=== PATIENT | female | born 1985 | race Caucasian/White ===

== ENCOUNTER → 2021-01-11 11:37 | Outpatient (CLI) | payer OTHER, SELFPAY ==
[2021-01-11 19:28] LABS: Add Manual Diff / Slide Review NO; Basophils Absolute Auto 100 /uL (0-100); Eosinophils Absolute Auto 200 /uL (0-450); Eosinophils Percent Auto 3.1 % (2-4); Hematocrit 39.6 % (36-46); Hemoglobin 13.1 g/dL (12.0-16.0); Lymphocytes Absolute Auto 2700 /uL (1100-4500); Lymphocytes Percent Auto 32.9 % (25-40); Mean Corpuscular HGB Conc 33.1 % (30-36); Mean Corpuscular Hemoglobin 29.7 PG (26-34); Mean Corpuscular Volume 89.7 fL (80-100); Monocytes Absolute Auto 600 /uL (0-900); Monocytes Percent Auto 7.2 % (3-14); Neutrophils Absolute Auto 4500 /uL (1500-7000); Neutrophils Percent Auto 55.8 % (50-75); Platelet Count 454 X10^3/uL (150-400); Red Blood Cell Count 4.41 X10^6/uL (4.0-5.2); Red Cell Distribution Width 13.8 % (11.6-14.8); White Blood Cell Count 8.1 X10^3/uL (4.5-11.0)
[2021-01-11 19:37] LABS: Alanine Aminotransferase 30 IU/L (<35); Albumin 4.2 g/dL (3.5-5.0); Albumin Globulin Ratio 1.4 (1.0-2.8); Alkaline Phosphatase 77 U/L (38-126); Aspartate Aminotransferase 36 IU/L (14-36); BUN Creatinine Ratio 13.4 (6-22); Bilirubin Total 0.4 mg/dL (0.2-1.3); Blood Urea Nitrogen 11 mg/dL (7-17); Carbon Dioxide 23 mmol/L (22-32); Chloride 106 mmol/L (98-107); Cholesterol 205 mg/dL (140-199); Estimated Glomerular Filt Rate > 60.0 mL/min (>60); Globulin 3.1 g/dL (1.7-4.1); Glucose 79 mg/dL (70-100); HDL Cholesterol 56 mg/dL (40-60); HEMOLYSIS < 15 (0-50); LDL Cholesterol Calculated 115 mg/dL (<100); Potassium 4.8 mmol/L (3.4-5.1); Sodium 139 mmol/L (137-145); Total Protein 7.3 g/dL (6.3-8.2); Triglycerides 168 mg/dL (35-150)
[2021-01-11 20:05] LABS: TSH w/ Reflex to FT4 3.11 uIU/mL (0.47-4.68)
== END ==
PROVIDERS: PCP Family Medicine; Visit Provider Family Medicine
DX: E03.9 Hypothyroidism, unspecified (principal); E78.5 Hyperlipidemia, unspecified; I10 Essential (primary) hypertension; N64.4 Mastodynia
CPT/HCPCS: 80053; 80061; 84443; 85025

== ENCOUNTER → 2024-05-18 09:35 | Outpatient (CLI) | payer OTHER, SELFPAY ==
[2024-05-18 19:06] LABS: Add Manual Diff / Slide Review NO; Basophils Absolute Auto 100 /uL (0-100); Basophils Percent Auto 0.9 % (0-2); Eosinophils Absolute Auto 600 /uL (0-450); Eosinophils Percent Auto 7.9 % (2-4); Hematocrit 39.9 % (36-46); Hemoglobin 13.4 g/dL (12.0-16.0); Lymphocytes Absolute Auto 2200 /uL (1100-4500); Lymphocytes Percent Auto 28.7 % (25-40); Mean Corpuscular HGB Conc 33.7 % (30-36); Mean Corpuscular Hemoglobin 30.5 PG (26-34); Mean Corpuscular Volume 90.6 fL (80-100); Monocytes Absolute Auto 600 /uL (0-900); Monocytes Percent Auto 7.1 % (3-14); Neutrophils Absolute Auto 4400 /uL (1500-7000); Neutrophils Percent Auto 55.4 % (50-75); Platelet Count 460 X10^3/uL (150-400); White Blood Cell Count 7.8 X10^3/uL (4.5-11.0)
[2024-05-18 19:10] LABS: HEMOLYSIS < 15 (0-50); Iron 54 ug/dL (37-170)
[2024-05-18 19:14] LABS: Alanine Aminotransferase 21 IU/L (<35); Albumin 4.1 g/dL (3.5-5.0); Albumin Globulin Ratio 1.5 (1.0-2.8); Alkaline Phosphatase 77 U/L (38-126); Aspartate Aminotransferase 24 IU/L (14-36); Bilirubin Total 0.3 mg/dL (0.2-1.3); Blood Urea Nitrogen 10 mg/dL (7-17); Calcium 9.6 mg/dL (8.4-10.2); Carbon Dioxide 20 mmol/L (22-32); Chloride 108 mmol/L (98-107); Cholesterol 160 mg/dL (140-199); Estimated Glomerular Filt Rate > 60 mL/min (>60); Globulin 2.7 g/dL (1.7-4.1); Glucose 98 mg/dL (70-100); HDL Cholesterol 50 mg/dL (40-60); HEMOLYSIS < 15 (0-50); LDL Cholesterol Calculated 86 mg/dL (<100); Potassium 4.7 mmol/L (3.4-5.1); Sodium 136 mmol/L (137-145); Total Protein 6.8 g/dL (6.3-8.2); Triglycerides 121 mg/dL (35-150)
[2024-05-18 19:21] LABS: Percent Iron Saturation 15 % (15-50); Total Iron Binding Capacity 354 ug/dL (265-497); Transferrin 278 mg/dL (206-381)
[2024-05-18 19:27] LABS: Vitamin D 25 Hydroxy (D3) 43.7 ng/mL (30.0-100.0)
[2024-05-18 19:46] LABS: Ferritin 34 ng/mL (6-137)
[2024-05-21 08:11] LABS: ANA Screen, IFA Positive (.)
== END ==
PROVIDERS: PCP Family Medicine; Visit Provider Family Medicine
DX: E78.5 Hyperlipidemia, unspecified (principal); E03.9 Hypothyroidism, unspecified; I10 Essential (primary) hypertension; K76.0 Fatty (change of) liver, not elsewhere classified; E55.9 Vitamin D deficiency, unspecified
CPT/HCPCS: 80053; 80061; 82306; 82728; 83540; 83550; 84443; 85025; 86038

== ENCOUNTER → 2024-11-01 08:34 | Outpatient (CLI) | payer OTHER, SELFPAY ==
--- NOTE | 2024-11-01 08:36 | DI.US.S_ITS ---
PROCEDURE: US ART THORACIC OUT SYNDROME INDICATIONS: Swelling of right upper extremity Pain of left up TECHNIQUE: Color and pulse Doppler interrogation was performed of left and right upper extremity arterial and venous systems, with image documentation. COMPARISON: None. FINDINGS: Right upper extremity: Arteries In the neutral position, the right subclavian artery and axillary artery appear normal. With the arm position adjusted to create symptoms, as well as with biceps curl, there is slightly increased right subclavian artery peak systolic velocity, otherwise without significant evidence of stenosis/impingement. The right axillary artery appears normal. These results do not change with push down or pushup maneuvers. Veins There is massively increased peak systolic velocity of the right subclavian vein reaching 228.2 centimeters/second at 90 degree position of the arm. The right subclavian vein otherwise appears normal with pushup resistance and push down maneuver. There is mild increase in the venous peak systolic velocity with biceps Coral at the right subclavian vein and right axillary vein up to 137.5 centimeters/second. Left upper extremity: Arteries The left subclavian and axillary artery appear patent throughout with no significant stenosis in the neutral position. Veins The left subclavian vein and axillary vein appear widely patent without significant stenosis. 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 - Consider CT venogram of the left upper extremity in a symptomatic position to provide a more definitive characterization and better anatomical localization as well as possible surgical planning. Dictated by: Manuel Sheth M.D. on 11/03/2024 at 19:34 Approved by: Manuel Sheth M.D. on 11/03/2024 at 19:53
== END ==
PROVIDERS: PCP Family Medicine; Referring Provider Family Medicine; Visit Provider Family Medicine
DX: Q79.60 Ehlers-Danlos syndrome, unspecified (principal); M79.89 Other specified soft tissue disorders; M79.622 Pain in left upper arm; M54.12 Radiculopathy, cervical region
CPT/HCPCS: 93930

== ENCOUNTER → 2024-11-27 10:41 | Outpatient (CLI) | payer OTHER, SELFPAY ==
--- NOTE | 2024-11-27 10:42 | DI.CT.S_ITS ---
PROCEDURE: CT ANGIO UE RT INDICATIONS: venogram RUE for Thoracic outlet syndrom TECHNIQUE: After the administration of intravenous contrast, 2.5 mm sections acquired from the aortic arch through the symptomatic arm, with optional delayed image acquisition from the elbows to the fingers. 3-dimensional maximum intensity projection (MIP) coronal and sagital reformats, and/or 3-dimensional volume rendering reformatting was then performed. For radiation dose reduction, the following was used: automated exposure control. COMPARISON: [facility], , US ART THORACIC OUT SYNDROME, 11/01/2024, 8:51. FINDINGS: Image quality: Excellent. Thoracic aorta: Included portion of the thoracic aorta is normal in size and show normal contrast opacification without aortic aneurysm or dissection. Great vessels: Patent without hemodynamically significant stenosis or aneurysm. Upper extremity: Patent without hemodynamically significant stenosis or aneurysm. There is hypertrophy of the right anterior scalene muscle with significant impingement of the distal right subclavian vein with the right arm is in raised position best seen on series 10, image 81 and series 11 image 61. No other area of abnormal narrowing is seen in included portion of right upper extremity veins. Extravascular tissues: There is no supraclavicular or axillary lymphadenopathy. Visualized mediastinal and hilar region shows no enlarged lymph nodes. Visualized right lung field is clear. No chest wall soft tissue mass or drainable fluid collection. The visualized osseous structures shows no aggressive appearing bony lesions. IMPRESSION: 1. Hypertrophy of right anterior scalene muscle and show significant mass effect on the adjacent distal right subclavian vein when the arm is in raised position consistent with right venous thoracic outlet syndrome. 2. No hemodynamically significant stenosis or aneurysm is seen in right upper extremity arteries with arm in race or neutral positions. 3. No right chest wall/axillary soft tissue mass or lymphadenopathy. Visualized right lung field is clear. Dictated by: Marshall Martinez M.D. on 11/28/2024 at 0:56 Approved by: Marshall Martinez M.D. on 11/28/2024 at 2:37
== END ==
LOC: CT 10:41
PROVIDERS: PCP Family Medicine; Referring Provider Family Medicine; Visit Provider Family Medicine
DX: M62.89 Other specified disorders of muscle (principal); I87.8 Other specified disorders of veins; M79.89 Other specified soft tissue disorders
CPT/HCPCS: 73206; Q9967

== ENCOUNTER → 2024-12-06 10:30 | Outpatient (CLI) | payer OTHER, SELFPAY ==
[2024-12-06 19:03] LABS: Rheumatoid Factor < 8.6 IU/mL (<12.0)
[2024-12-07 15:01] LABS: HIV 1 & 2 Ab/Ag 4th Gen Combo NEGATIVE (NEGATIVE)
[2024-12-08 04:40] LABS: Complement C3 151 mg/dL (82-167)
[2024-12-08 05:11] LABS: HBsAg Screen Negative (Negative); Hepatitis A Antibody IgM Negative (Negative); Hepatitis B Core Antibody IgM Negative (Negative); Hepatitis C Antibody Non Reactive (Non Reactive)
[2024-12-09 00:41] LABS: Complement Total CH50 > 60 U/mL (>41)
[2024-12-09 15:09] LABS: Antimyeloperoxidase Antibodies <0.2 units (0.0-0.9); Antiproteinase 3 Antibodies <0.2 units (0.0-0.9); Cytoplasmic C-ANCA <1:20 titer (Neg:<1:20); Perinuclear P-ANCA <1:20 titer (Neg:<1:20)
[2024-12-09 17:12] LABS: CCP Antibodies IgG/IgA 9 units (0-19)
== END ==
PROVIDERS: PCP Family Medicine; Referring Provider Family Medicine; Visit Provider Family Medicine
DX: L29.9 Pruritus, unspecified (principal); R23.1 Pallor; R23.3 Spontaneous ecchymoses; R76.8 Other specified abnormal immunological findings in serum
CPT/HCPCS: 80074; 82595; 86160; 86162; 86200; 86256; 86430; 87389

== ENCOUNTER → 2025-02-08 13:07 | Outpatient (CLI) | payer OTHER, SELFPAY ==
--- NOTE | 2025-02-08 13:09 | DI.US.S_ITS ---
PROCEDURE: US PELVIC COMPLETE INDICATIONS: LLQ pain/ and LUQ pain chronic TECHNIQUE: Real-time scanning was performed of the pelvic organs, with image documentation. Additional endovaginal scanning was necessary due to incomplete visualization of the adnexal and endometrial structures by transabdominal scanning. IUD is visualized within the endometrium and appears to be in appropriate position. COMPARISON: None. FINDINGS: Uterus: Uterus is anteverted and normal in size at 8.2 x 2.6 x 3.1 cm. The myometrium is homogeneous. The endometrium measures 5.9 mm combined thickness. Ovaries: The right ovary measures 1.7 x 0.7 x 3.5 cm, with a calculated ovarian volume of 1.4 cc. The left ovary measures 1.5 x 1.6 x 2.1 cm, with a calculated ovarian volume of 2.6 cc. The ovaries have a normal sonographic appearance. Less than 12 follicles can be seen in each ovary. No adnexal masses are seen. Other: No pathologic free abdominal or pelvic fluid. IMPRESSION: IUD appears to be in appropriate position. Normal sonographic appearance of the uterus, endometrium and bilateral ovaries. Approved by: Bibiana Potter M.D.,Ph.D. on 02/09/2025 at 14:00
--- NOTE | 2025-02-08 13:10 | DI.US.S_ITS ---
PROCEDURE: US ABDOMEN LIMITED INDICATIONS: Left upper quadrant/left flank pain TECHNIQUE: Real-time scanning was performed of the abdominal and retroperitoneal organs, with image documentation. COMPARISON: None. FINDINGS: Spleen: Spleen is normal in size and homogeneous in echotexture. Left Kidney: Left Kidney is normal in size and echotexture. Left kidney measures 11.1 cm long. No hydronephrosis or nephrolithiasis. No solid masses. IMPRESSION: Limited abdominal ultrasound demonstrates no sonographic abnormality in the spleen or left kidney. Approved by: Bibiana Potter M.D.,Ph.D. on 02/09/2025 at 13:46
== END ==
LOC: US 13:08
PROVIDERS: PCP Family Medicine; Referring Provider Family Medicine; Visit Provider Family Medicine
DX: R10.32 Left lower quadrant pain (principal); Z97.5 Presence of (intrauterine) contraceptive device
CPT/HCPCS: 76705; 76830; 76856

== ENCOUNTER → 2025-05-04 13:02 | Outpatient (CLI) | payer OTHER, SELFPAY ==
[2025-05-04 19:44] LABS: Thyroid Stimulating Hormone 2.56 uIU/mL (0.47-4.68)
[2025-05-04 19:52] LABS: Ferritin 50 ng/mL (6-137)
[2025-05-04 20:20] LABS: Folate 5.3 ng/mL (2.76-20.0); Vitamin B12 316 pg/mL (239-931)
== END ==
PROVIDERS: PCP Family Medicine; Visit Provider Family Medicine
DX: R42 Dizziness and giddiness (principal); F32.A Depression, unspecified; I10 Essential (primary) hypertension; E03.9 Hypothyroidism, unspecified
CPT/HCPCS: 82607; 82728; 82746; 84443

== ENCOUNTER → 2025-05-24 12:04 | Outpatient (CLI) | payer OTHER, SELFPAY ==
--- NOTE | 2025-05-24 12:11 | DI.RAD.S_ITS ---
PROCEDURE: XR CERVICAL SPINE MIN 6V INDICATIONS: neck pain, TOS, RUE pain/paresthesia TECHNIQUE: 7 views of the cervical spine were acquired. COMPARISON: None. FINDINGS: Bones: No fractures or dislocations to the T1 level. No suspicious bony lesions. There is normal range of motion between flexion and extension, with preserved normal bony alignment. No pars defects seen on oblique views. Soft tissues: Prevertebral soft tissues are normal in thickness. IMPRESSION: No acute osseous abnormality. No significant degenerative changes. Approved by: Bibiana Potter M.D.,Ph.D. on 05/24/2025 at 16:00
== END ==
LOC: RAD 12:10
PROVIDERS: PCP Family Medicine; Referring Provider Physical Medicine & Rehabilitation; Visit Provider Physical Medicine & Rehabilitation
DX: M54.2 Cervicalgia (principal); G54.0 Brachial plexus disorders; R20.2 Paresthesia of skin
CPT/HCPCS: 72052

== ENCOUNTER → 2025-06-11 13:26 | Outpatient (CLI) | payer OTHER, SELFPAY ==
--- NOTE | 2025-06-11 13:27 | DI.MRI.S_ITS ---
PROCEDURE: MR CERVICAL SPINE WO CON INDICATIONS: neck pain, TOS, RUE pain/paresthesia TECHNIQUE: Noncontrast sagittal T1 spin echo and T2 fast spin echo, sagittal STIR, foraminal oblique sagittal T2 fast spin echo, and axial gradient echo or T2 fast spin echo through the cervical spine. COMPARISON: [facility], CR, ORTHO-XR CERVICAL SPINE 6 +VW, 05/24/2025, 12:16. FINDINGS: Image quality: Diagnostic. Alignment and Curvature: There is normal bony alignment. Bone Marrow: Marrow demonstrates normal overall signal. Spinal Cord: Visualized spinal cord has normal size and signal. No cerebellar tonsillar herniation. Paraspinous Soft Tissues: No paravertebral masses. Prevertebral soft tissues are normal in thickness. C2-C3: No significant neuroforaminal or spinal canal stenosis. C3-C4: No significant neuroforaminal or spinal canal stenosis. C4-C5: Minimal degenerative endplate changes anteriorly. No significant neuroforaminal or spinal canal stenosis. C5-C6: Minimal degenerative endplate changes anteriorly. No significant neuroforaminal or spinal canal stenosis. C6-C7: No significant neuroforaminal or spinal canal stenosis. C7-T1: No significant neuroforaminal or spinal canal stenosis. IMPRESSION: Cervical spine MRI without acute abnormalities or malalignment. Minimal cervical spondylitic changes at C4-5 and C5-6. Overall, no significant neuroforaminal or spinal canal stenosis. Dictated by: Johann Capellan M.D. on 06/13/2025 at 21:01 Approved by: Johann Capellan M.D. on 06/13/2025 at 21:07
== END ==
LOC: MRI 13:26
PROVIDERS: PCP Family Medicine; Referring Provider Family Medicine; Visit Provider Physical Medicine & Rehabilitation
DX: M54.2 Cervicalgia (principal); G54.0 Brachial plexus disorders; R20.2 Paresthesia of skin
CPT/HCPCS: 72141